=== PATIENT | female | born 1965 | race Caucasian/White ===

== ENCOUNTER → 2016-08-11 | Outpatient (CLI) | payer OTHER ==
[~2016-08-11] MED LIST: BCPILLS PO; MNC50 PO
== END | disposition home or self-care (01) ==
LOC: C.PAPS 16:13
PROVIDERS: ATTEND Obstetrics & Gynecology
DX: Z01.419 Encounter for gynecological examination (general) (routine) without abnormal findings (principal)

== ENCOUNTER → 2016-08-25 | Outpatient (CLI) | payer OTHER ==
--- NOTE | 2016-08-25 13:17 | MAMMOGRAPHY REPORT ---
UNILATERAL RIGHT DIGITAL DIAGNOSTIC MAMMOGRAM TOMOSYNTHESIS WITH CAD AND TARGETED RIGHT ULTRASOUND: CLINICAL HISTORY: 51-year-old woman presents for follow-up in the right breast. She was initially ca lled back from screening for an asymmetry in the lateral posterior right breast, best seen on the CC view. Several simple and complicated cysts were seen on ultrasound, and she returns for follow-up to ensure stability. TECHNIQUE: Right breast tomosynthesis in addition to standard 2D mammography was performed. Current s madie was also evaluated with a Computer Aided Detection (CAD) system. COMPARISON: Comparison is made to exams dated: 02/18/2016 mammogram, 02/18/2016 ultrasound, 6 mammogram, 01/29/2015 mammogram, 01/23/2014 mammogram, and 01/17/2013 mammogram - [facility]. BREAST COMPOSITION: The tissue of the right breast is heterogeneously dense, which may obscure small masses. FINDINGS: The asymmetry in the lateral posterior right breast is less conspicuous than the 02/04/2016 mammogram. On the current right CC tomosynthesis images, there is a lobulated and circumscribed 12 mm mass in the lateral middle one third of the breast on CC tomosynthesis slice 12, and a round circu mscribed 7 mm mass in the lateral middle one third of the breast on CC tomosynthesis slice 23. No fo surinder area of architectural distortion, suspicious calcification or other suspicious mass is seen. Fur ther evaluation with ultrasound was performed. Targeted ultrasound was performed throughout the lateral right breast. A benign anechoic simple cyst is again seen in the 8:00 axis, 5 cm from the nipple, measuring 11.5 x 5.7 x 13.0 mm. A heterogeneo us, probable complicated cyst with prominent anechoic cystic spaces in the 11:00 right breast, 2 cm f rom the nipple measures 4.0 x 3.2 x 3.0 mm. Another predominantly anechoic, complicated cyst is iden tified in the 7:00 right breast, 3 cm from the nipple, measuring 4.4 x 2.4 x 3.6 mm. There are clump ed hypoechoic nodular circumscribed masses with suggested posterior acoustic enhancement in the 8:00 right breast, 6 cm from the nipple, measuring approximately 7.1 x 3.6 x 3.9 mm. This is thought to c orrelate with the lobulated mammographic mass seen on CC slice 12. These could represent a cluster o f complicated cysts or benign solid masses such as fibroadenomas. However given that they are newly visualized a short interval follow-up targeted ultrasound is recommended in 6 months. The complicate d cysts in the 7:00 and 11:00 axes of the right breast and also be reassessed at that time. IMPRESSION: ACR-BI-RADS CATEGORY 3: PROBABLY BENIGN, TARGETED ULTRASOUND ACR-BI-RADS CATEGORY 3: PRO BABLY BENIGN Less conspicuous asymmetry in the lateral right breast mammographically, with probable complicated cy sts versus benign-appearing solid masses seen on the right lateral breast on ultrasound, particularly in the 7:00, 8:00 and 11:00 axes. The overall findings most likely represent benign fibrocystic yesenia nges. However, another short interval follow-up diagnostic right mammogram and repeat targeted ultra sound is recommend to ensure longer stability. Also particular attention should be paid to the 8:00 right breast, 6 cm from the nipple, to reassess the newly visualized complicated cyst cluster versus benign-appearing solid masses seen on the current ultrasound. Annual left mammography will also be d ue at that time. These results and recommendations were discussed with the patient at the time of the exam. She tenta tively scheduled a follow-up appointment prior to leaving the department. Approximately 10% of breast cancers are not detected with mammography. A negative mammographic report should not delay biopsy if a clinically suggestive mass is present. Bethanie Grey M.D. ay/:08/25/2016 09:33:52 Computed Tomography Scanner Operator: Jessenia GONZALES)(Jade), [facility] letter sent: Follow Up Recommended 3 BI-RADS Code: ACR-BI-RADS Category 3: Probably Benign Ultrasound BI-RADS: ACR-BI-RADS Category 3: Pr obably Benign
== END | disposition home or self-care (01) ==
LOC: C.MAMM 08:19
PROVIDERS: ATTEND Obstetrics & Gynecology
DX: Z09 Encounter for follow-up examination after completed treatment for conditions other than malignant neoplasm (principal); N64.9 Disorder of breast, unspecified

== ENCOUNTER → 2017-02-24 | Outpatient (CLI) | payer OTHER ==
--- NOTE | 2017-02-24 15:30 | MAMMOGRAPHY REPORT ---
BILATERAL DIGITAL DIAGNOSTIC MAMMOGRAM TOMOSYNTHESIS WITH CAD AND TARGETED RIGHT ULTRASOUND: 02/25/20 17 CLINICAL HISTORY: 51-year-old woman presents for follow-up of an asymmetry in the lateral right breas t and also due for annual bilateral mammograms. Several benign-appearing cystic and possibly solid m asses were seen throughout the lateral right breast on prior ultrasound. TECHNIQUE: Bilateral breast tomosynthesis in addition to standard 2D mammography was performed. Curre nt study was also evaluated with a Computer Aided Detection (CAD) system. COMPARISON: Comparison is made to exams dated: 08/25/2016 mammogram, 02/04/2016 mammogram, 01/29/2015 mammogram, 01/23/2014 mammogram, 01/17/2013 mammogram, and 01/12/2012 mammogram - [facility]. BREAST COMPOSITION: The tissue of both breasts is heterogeneously dense, which may obscure small mas ses. FINDINGS: There are possible areas of architectural distortion in the middle one third of the left b reast, along the posterior nipple line and slightly medial to the posterior nipple line on the CC vie w, for which additional spot compression tomosynthesis views were obtained. The additional spot comp ression tomosynthesis views of the left breast demonstrate no persisting architectural distortion in the areas of concern, most likely represented normal overlapping fibroglandular tissue. No suspiciou s mass, definite area of architectural distortion, new suspicious calcifications or asymmetry is seen in the left breast. There is a persistent 11 x 6 mm focal asymmetry versus partially circumscribed and obscured mass in t he lateral, middle to posterior right breast (tomosynthesis slice 17/70), that is stable in size and appearance dating back to 02/04/2016. With one year of stability this is most likely benign. There is no associated architectural distortion or calcification. Further evaluation with ultrasound was a gain performed in the lateral right breast. No other suspicious masses, areas of architectural disto rtion, new microcalcifications or developing asymmetry is seen in the right breast. Targeted ultrasound was performed throughout the lateral right breast. A benign anechoic simple cyst is again seen in the 8:00 right breast, 5 cm from the nipple, measuring 12.5 x 7.5 x 12.9 mm. Sligh tly closer to the nipple in the 8:00 right breast, 4 cm from the nipple, a trilobed multilobulated hy poechoic solid versus cystic mass is again seen, measuring 10.1 x 4.0 x 5.4 mm. This is thought to c orrelate with the mammographic asymmetry versus mass in the lateral breast on the CC view and could r epresent a benign mass such as a fibroadenoma. It is unchanged comparing to the prior ultrasound fro m 08/25/2016. Another possible fluctuating cyst cluster versus focal fibrocystic change is identifie d in the 11:00 right breast, 2 cm from the nipple, measuring 3.9 x 3.0 x 3.6 mm. This has not signif icant changed comparing to the prior ultrasound at which time it measured 4.0 x 3.2 x 3.0 mm. A prev iously observed possible cyst in the 7:00 right breast is no longer identified, confirming benignity. IMPRESSION: ACR-BI-RADS CATEGORY 3: PROBABLY BENIGN, TARGETED ULTRASOUND ACR-BI-RADS CATEGORY 3: PRO BABLY BENIGN 1. No mammographic evidence of malignancy in the left breast. Advise routine screening tomosynthesi s mammography in 12 months. 2. A nodular asymmetry versus lobulated mass measuring 11 x 6 mm in the lateral, middle to posterior right breast, best seen on the CC view, is unchanged in size and appearance dating back to 6 and with one year of mammographic stability is most likely benign. This is thought to correlate wi th a lobulated hypoechoic solid versus cystic mass in the 8:00 right breast on ultrasound. Another 1 2 month follow-up right diagnostic tomosynthesis mammogram and repeat targeted ultrasound is recommen ded to ensure at least 2 years of stability to confirm benignity. These results and recommendations were discussed with the patient and her at the time of the exam. Approximately 10% of breast cancers are not detected with mammography. A negative mammographic report should not delay biopsy if a clinically suggestive mass is present. Bethanie Grey M.D. ay/:02/24/2017 10:18:12 Geospatial Developer: Trina GONZALES)(Jade), [facility] letter sent: Follow Up Recommended 3 BI-RADS Code: ACR-BI-RADS Category 3: Probably Benign Ultrasound BI-RADS: ACR-BI-RADS Category 3: Pr obably Benign
== END | disposition home or self-care (01) ==
LOC: C.MAMM 07:48
PROVIDERS: ATTEND Obstetrics & Gynecology
DX: R92.8 Other abnormal and inconclusive findings on diagnostic imaging of breast (principal); N63.13 Unspecified lump in the right breast, lower outer quadrant